=== PATIENT | male | born 2005 | race Caucasian/White ===

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

== ENCOUNTER 2023-09-28 11:58 | Emergency (ER) | payer BC, SELFPAY ==
[2023-09-28 12:14] VITALS: BP 126/78; PULSE 88; RESP 16; TEMP 38.4; O2SAT 99
--- NOTE | 2023-09-28 12:15 | ED.URI ---
HPI - URI/Sore Throat General Chief Complaint: Upper Respiratory Infection Stated Complaint: body aches,tired,headache,spine/neck pain Time Seen by Provider: 09/28/23 12:30 Source: patient and RN notes reviewed Mode of arrival: ambulatory Limitations: no limitations History of Present Illness HPI Narrative: 18-year-old male presents concern for less than 2 day history of body aches, fever, headache, nausea, vomiting. Reports he has been taking Tylenol ibuprofen and Delsym. Reports symptoms started after returning from [place]. MD elicited complaint: fever and cough Related Data Allergies Allergy/AdvReac Type Severity Reaction Status Date / Time Penicillins Allergy Severe Hives Verified 09/28/23 12:27 Review of Systems Review of Systems: CONSTITUTIONAL: Reports malaise, chills, sweats, or fever. EYES: Denies visual changes, redness, or discharge. ENT: Reports rhinorrhea, congestion, and sore throat. CARDIOVASCULAR: Denies chest pain, palpitations, or edema. RESPIRATORY: Reports cough. Denies dyspnea. GASTROINTESTINAL: Denies abdominal pain. Reports nausea, vomiting, diarrhea SKIN: Denies rash or itching. MUSCULOSKELETAL: Reports myalgia. NEUROLOGIC: Reports headache. All systems reviewed & are unremarkable except as noted in HPI and below PMFSH Surgical History Surgical History H/O adenoidectomy History of tonsillectomy Comments At time of signature, agree with nursing past medical, surgical, social and family history. There is no relevant family history pertinent to the presenting complaint Exam Narrative: GENERAL: Nontoxic-appearing, well-nourished, and in no acute distress. HEAD: Normocephalic EYES: PERRLA, conjunctivae clear ENT: Nares clear. Mucous membranes moist. TM pearly delcid with sharp light reflex bilaterally; no tragal tenderness. Oropharynx not erythematous without lesions. Tonsils not enlarged and without exudate, no drooling, no hoarseness, no trismus, uvula midline. NECK: Supple. No lymphadenopathy CHEST: Clear to auscultation, breath sounds equal. No wheezing, rhonchi, rales, or stridor. No respiratory distress, speaks in full sentences. HEART: Regular rate and rhythm. No murmur heard. SKIN: Warm, dry, no rash. NEURO: Alert and oriented x3. PSYCH: Normal mood and affect Course Course Emergency Course: Patient is aware of diagnosis, understands and agrees to treatment plan. Anticipatory guidance given. Patient agrees to follow-up as directed and is aware of reasons to seek care at the emergency department. Portions of this record may have been created with voice recognition software Level of Care: Express Care Visit Vital Signs Vital signs: Reviewed. MDM - URI/Sore Throat MDM Narrative Medical decision making narrative: Differential diagnosis considered: Alegre virus, strep pharyngitis, allergic rhinitis, upper respiratory tract infection, sinusitis, rhinosinusitis, nasopharyngitis. viral pharyngitis, otitis media, otitis externa, pneumonia, bronchitis, viral cough syndrome, viral syndrome, and influenza. Exam findings show no acute concerns or changes; patient is non-toxic appearing and is in no distress. Patient is appropriate for outpatient treatment and follow-up. Lab Data Attestation: I reviewed the patient's lab results. Critical Care Time Critical Care Time Critical Care Time: No Discharge Plan Discharge Clinical Impression: Influenza A Patient Disposition: Home, Self-Care Condition: Stable Instructions: Influenza (ED) Additional Instructions: -Take strict precautions to prevent the spread of your virus. Be diligent about covering your cough (even when you are alone) and washing your hands frequently. -You may contagious until you have been symptom and/or fever free for 24 hours without fever reducing medicine -Alternate Ibuprofen and Tylenol for pain and fever relief (per package directions) -
== END 2023-09-28 12:42 | disposition home or self-care (01) ==
PROVIDERS: Emergency Provider Nurse Practitioner; PCP Family Medicine Adolescent Medicine
DX: J10.1 Influenza due to other identified influenza virus with other respiratory manifestations (principal); Z20.822 Contact with and (suspected) exposure to COVID-19
CPT/HCPCS: 87426; 87804; 99213; G0463

== ENCOUNTER 2024-06-14 13:58 | Emergency (ER) | payer BC, SELFPAY ==
[2024-06-14 14:08] VITALS: BP 130/72; PULSE 66; RESP 16; TEMP 36.4; O2SAT 99
--- NOTE | 2024-06-14 14:08 | ED_ITS ---
HPI - URI/Sore Throat General Chief Complaint: Upper Respiratory Infection Stated Complaint: Sore Throat/Sinus Time Seen by Provider: 06/14/24 14:00 Source: patient Mode of arrival: ambulatory Limitations: no limitations History of Present Illness HPI Narrative: Patient is a 18-year-old male who presents with 2 days of sore throat, sinus congestion, sinus pressure, headache and mild cough. Patient denies any fever, chills, nausea, vomiting, diarrhea. Has taken [id number] medication the relief. Related Data Allergies Allergy/AdvReac Type Severity Reaction Status Date / Time Penicillins Allergy Severe Hives Verified 09/28/23 12:27 All cillins Allergy Hives Uncoded 06/14/24 14:46 Review of Systems Review of Systems: All systems reviewed & are unremarkable except as noted in HPI and below Constitutional: Constitutional: Denies body ache(s), Denies chills, Denies fatigue, Denies fever(s), Denies headache(s), Denies malaise and Denies weakness Eyes: Eyes: Denies blurry vision, Denies itchy eyes and Denies loss of vision ENT: Denies otalgia, Denies headache(s), Reports nasal congestion, Denies sinus pain, Reports sinus pressure and Denies sore throat Cardiovascular: Cardiovascular: Denies chest pain, Denies irregular heart rhythm and Denies dyspnea Respiratory: Respiratory: Reports cough and Denies dyspnea Gastrointestinal: Gastrointestinal: Denies abdominal pain, Denies diarrhea, Denies nausea and Denies vomiting Musculoskeletal: Musculoskeletal: Denies back pain, Denies myalgias and Denies arthralgias Integumentary/Breasts: Skin/Breast: Denies pruritus and Denies rash Neurologic: Denies headache(s), Denies loss of vision and Denies weakness Psychiatric: Psychiatric: Reports no additional psychiatric complaints Endocrine: Endocrine: Denies fatigue Allergic/Immunologic: Allergic/Immunologic: Denies itchy eyes PMFSH Surgical History Surgical History H/O adenoidectomy History of tonsillectomy Comments At time of signature, agree with nursing past medical, surgical, social and family history. There is no relevant family history pertinent to the presenting complaint. Exam Const: General: cooperative, healthy appearing, comfortable, no acute distress and well nourished Nutritional Appearance: well nourished Orientation/consciousness: patient oriented x3 Limitations: no limitations HENMT: Head: normal to inspection, normocephalic and atraumatic Ears: hearing grossly normal bilaterally, external ears normal, TM's normal bilaterally, EAC's normal and no periauricular adenopathy Face/Nose/Sinus: Normal external nose present, Abnormal mucous membranes and turbinates present erythematous bilateral and diffuse, normal facial exam, sinuses nontender and face symmetric Face and sinus: normal facial exam, sinuses nontender and face symmetric Mouth: Yes Normal oral and palatal mucosa present, Yes lip normal, Yes tongue normal, Yes Normal salivary glands and ducts present, Yes oropharynx normal and Yes moist mucous membranes Teeth and gingiva: dentition normal Throat: posterior oropharynx normal, tonsils normal, uvula midline and postnasal drainage Eyes: General: appearance normal, both eyes and all related structures Alignment and Position: alignment normal and position normal Periorbital: periorbital findings normal Eyelids: eyelids normal Pupils: Equal, round and reactive pupils present Neck: Neck: normal visual inspection, full ROM, no lymphadenopathy and supple Chest: Chest palpation & inspection: normal inspection of the chest and normal palpation of entire chest wall Resp: Effort & Inspection: normal respiratory effort and able to speak in complete sentences Auscultation: clear to auscultation bilaterally, no crackles, no rales, no rhonchi and no wheezes Cardio: Rate: regular rate Rhythm: regular rhythm Heart sounds: S1 normal heart sound present and S2 normal heart sound present GI: Inspection: normal to inspection Skin: General skin exam: normal color and no rashes or lesions noted Neuro: General: patient oriented x3 and moves all extremities Cranial nerves: Yes Equal, round and reactive pupils present Speech: normal speech Gait exam (Neuro): Normal gait present Extrem: General: normal to inspection, full ROM and no edema Psych: Appearance: grossly normal and well kempt Mental Status: mental status grossly normal Speech and movement: Normal speech and movement present Affect: normal affect Attitude: cooperative Thought process: Normal thought process present Course Course Emergency Course: Patient is aware of diagnosis, understands and agrees to treatment plan. Anticipatory guidance given. Patient agrees to follow-up as directed and is aware of reasons to seek care at the emergency department. Portions of this record may have been created with voice recognition software Level of Care: Express Care Visit Vital Signs Vital signs: Vital Signs Temperature 36.4 C L 06/14/24 14:08 Pulse Rate 66 06/14/24 14:08 Respiratory Rate 16 06/14/24 14:08 Blood Pressure 130/72 06/14/24 14:08 Pulse Oximetry 99 06/14/24 14:08 Oxygen Delivery Room Air 06/14/24 14:08 Temperature 36.4 C L 06/14/24 14:08 Pulse Rate 66 06/14/24 14:08 Respiratory Rate 16 06/14/24 14:08 Blood Pressure 130/72 06/14/24 14:08 Pulse Oximetry 99 06/14/24 14:08 Oxygen Delivery Room Air 06/14/24 14:08 Reviewed MDM - URI/Sore Throat MDM Narrative Medical decision making narrative: Discharge instructions reviewed with patient, as well as provided in writing per nursing staff. The instructions also include specific and strict return/GO TO THE ER as well as f/u information. All questions have been answered, and the patient deny any further questions with discharge and discharge plan. Differential diagnosis considered: Alegre virus, strep pharyngitis, allergic rhinitis, upper respiratory tract infection, sinusitis, rhinosinusitis, nasopharyngitis. viral pharyngitis, otitis media, otitis externa, otitis effusion, foreign body, cerumen impaction, viral syndrome, and influenza.? Exam findings show no acute concerns or changes; patient is non-toxic appearing and is in no distress.? Patient is appropriate for outpatient treatment and follow- up.? Medical Records Attestation: I reviewed the patient's medical records. Lab Data Attestation: I reviewed the patient's lab results. Labs: Lab Results 06/14/24 Range/Units 14:26 POC Grp A Strep Screen Negative (Negative) Discharge Plan Discharge Clinical Impression: Upper respiratory infection Qualifiers: URI type: acute nasopharyngitis (common cold) Qualified Code(s): J00 - Acute nasopharyngitis [common cold] Patient Disposition: Home, Self-Care Condition: Stable Instructions: Upper Respiratory Infection (ED) Additional Instructions: Your rapid strep swab was negative today at [facility]. A throat culture will be sent to the laboratory for further testing. If the test is positive, you will receive a phone call within 48 hours and an appropriate antibiotic will be initiated at that time. Your symptoms are likely due to a viral illness, which is not treated with antibiotics. Viral symptoms can be present for up to a few weeks. -Alternate Tylenol and Motrin per package directions for fever or pain. -Antihistamine medication such as Benadryl/Zyrtec at night and Claritin/Kacey during the day can help improve symptoms. -Use Flonase twice a day for 5 days then daily to help reduce the inflammation and dry up your sinuses. -You can also use Sudafed behind the pharmacy counter(12 or 24 hour). Be sure to drink plenty of water with these medications at least 8 ounces with every dose and it is important to drink 8 to 10 glasses of water per day. Water is a natural decongestant -Eat and drink things that are easy to swallow, like tea or soup, or popsicles. -Oral rinses such as: Salt water gargles and/or may use topical anesthetic (eg. Chloraseptic spray) or lozenges to relieve dryness or throat pain). -Frequent hand washing or hand welfare adviser is one of the best ways to prevent spread of infection. -Using a vaporizer or humidifier at night will also help thin secretions and help with coughing up phlegm. -Follow up with primary care provider in 3-5 days if condition is not improving - For new or worsening symptoms go directly to the nearest ER Prescriptions: New fluticasone propionate [Flonase Allergy Relief] 50 mcg/actuation spray,suspension 1 spray intranasal DAILY Qty: 16 0RF Rx Instructions: administer into each nostril loratadine 10 mg tablet 10 mg PO DAILY Qty: 30 0RF No Action (DME) Aerochamber MV Spacer See Rx Instructions .Route Qty: 1 0RF Rx Instructions: As directed oseltamivir 75 mg capsule 75 mg PO BID 5 Days Qty: 10 0RF promethazine 25 mg tablet 25 mg PO TID PRN (Reason: nausea and vomiting) Qty: 14 0RF Follow-up/Referrals: Cholo Babin MD [Primary Care Provider] - 3 Days Time of Disposition: 15:04
[2024-06-14 14:28] LABS: EDSTREPNEGPOS1 Negative (Negative)
== END 2024-06-14 15:10 | disposition home or self-care (01) ==
PROVIDERS: Emergency Provider Nurse Practitioner Family; PCP Family Medicine Adolescent Medicine
DX: J00 Acute nasopharyngitis [common cold] (principal)
CPT/HCPCS: 87081; 87880; 99213; G0463

== ENCOUNTER 2024-06-23 19:50 | Emergency (ER) | payer BC, SELFPAY ==
--- NOTE | ~2024-06-23 | XR_ITS ---
EXAMINATION: XR chest 2V DATE: 06/23/2024 22:24 INDICATION: Infection. TECHNIQUE: Frontal and lateral views of the chest were obtained. COMPARISON: Chest 2 view 05/10/2013 FINDINGS: There is no pneumonia, pleural effusion, or pneumothorax. The heart size is normal. IMPRESSION: 1. No acute cardiopulmonary disease. Reviewed, dictated and finalized at location A. [employer]
--- NOTE | ~2024-06-23 | CT_ITS ---
EXAMINATION: CT abdomen pelvis w con DATE: 06/23/2024 22:37 INDICATION: Abdominal pain. Diarrhea. TECHNIQUE: Computed tomography (CT) of the abdomen and pelvis was performed with 100 mL Omnipaque 350 intravenous contrast. Automated exposure control and iterative reconstruction technique were employe d. The dose-length product was 282.02 mGy-cm. COMPARISON: None. FINDINGS: The visualized portions of the bases are clear without pneumonia or pleural effusion. The h eart size is normal. No pericardial effusion. The liver, gallbladder, spleen, pancreas, adrenal gland s, and kidneys are normal. There are no dilated loops of bowel. There is liquid stool in the colon co rrelating with the symptom of diarrhea. The appendix is normal. There are no pathologically enlarged lymph nodes. Mild lumbar spondylosis. IMPRESSION: 1. No etiology for the patient's symptoms. Reviewed, dictated and finalized at location A. [employer]
[2024-06-23 20:20] VITALS: BP 103/69; PULSE 83; RESP 20; TEMP 36.7; O2SAT 100
[2024-06-23] MEDS: ONDANSETRON INJ 4 MG/2 ML VIAL IV PUSH (20:56)
--- NOTE | 2024-06-23 21:23 | ED_ITS ---
HPI - Nausea/Vomiting/Diarrhea General Chief complaint: Nausea/Vomiting/Diarrhea <Maame Raygoza APRN - Last Filed: 06/24/24 02:41> Stated complaint: n/v/d <Maame Raygoza APRN - Last Filed: 06/24/24 02:41> Time Seen by Provider: 06/23/24 20:51 <Maame Raygoza APRN - Last Filed: 06/24/24 02:41> History of Present Illness HPI Narrative: Patient is a 18-year-old male who presents to the ER with abdominal pain, vomiting, diarrhea since this morning. He reports he had Belcher's this morning and his symptoms started shortly afterwards. Patient denies use marijuana. He denies any recent sick contacts. Patient reports he has been able to urinate today. He denies any pertinent medical history related to this visit. Patient denies chest pain, shortness of breath, fevers. <Maame Raygoza APRN - Last Filed: 06/24/24 02:41> Related Data Allergies/Adverse reactions: Allergies Allergy/AdvReac Type Severity Reaction Status Date / Time Penicillins Allergy Severe Hives Verified 06/23/24 20:28 All cillins Allergy Hives Uncoded 06/23/24 20:28 <Maame Raygoza APRN - Last Filed: 06/24/24 02:41> Review of Systems 2 Review of Systems: All systems reviewed & are unremarkable except as noted in HPI and below <Maame Raygoza APRN - Last Filed: 06/24/24 02:41> PMFSH Surgical History Surgical History: Surgical History H/O adenoidectomy History of tonsillectomy <Maame Raygoza APRN - Last Filed: 06/24/24 02:41> Exam 2 Narrative: GENERAL: Ill-appearing, well-nourished, non-toxic, in distress d/t abdominal pain. HEAD: Normocephalic, atraumatic. NECK: Supple. No adenopathy, no masses. RESPIRATORY: Airway patent, respirations nonlabored. Clear to auscultation bilaterally, no rales, rhonchi, wheezing. CARDIOVASCULAR: Regular rate and rhythm without murmurs, rubs, or gallops. Peripheral pulses 2+ and equal bilaterally. ABDOMINAL: Soft, tender with palpation, nondistended, no hepatosplenomegaly. Normoactive BS. MUSCULOSKELETAL: Moves all extremities. Strength/ROM intact without gross deformities. SKIN: Warm, dry, normal color. No rashes. NEURO: A&O X3. Speech clear. Cranial nerves II-XII grossly intact.No ataxic movements. <Maame Raygoza APRN - Last Filed: 06/24/24 02:41> Course CONVEYOR WORKER/PA Physician Supervision I agree with midlevel documentation; I performed the medical decision making component of this evaluation. I had independent [id number] time with the patient and performed my own independent evaluation and assessment. Patient otherwise looks remarkably improved after medications, vital signs have been normal and stable here in the emergency department. Aside from a white count elevation likely secondary to his nausea vomiting diarrhea I do not have any infectious concerns and his symptoms are likely secondary to a gastroenteritis secondary to potential food poisoning after eating Belcher's and [employer] today. He was re-evaluated frequently with complete symptomatic resolution. He felt comfortable with discharge home and I did tell him about his laboratory results and if he has any persistent symptoms or worsening symptoms that he needs to come back for repeat evaluation. Patient and family verbalized understanding these instructions and stable for discharge home with several medications for symptom control. Please refer to [facility] dictation for complete documentation of care and disposition. <Erik Garcia MD - Last Filed: 06/24/24 02:38> Vital Signs Vital signs: Vital Signs Temperature 36.7 C 06/23/24 20:20 Pulse Rate 83 06/23/24 20:20 Respiratory Rate 20 06/23/24 20:20 Blood Pressure 103/69 06/23/24 20:20 Pulse Oximetry 100 06/23/24 20:20 Oxygen Delivery Room Air 06/23/24 20:20 Temperature 36.7 C 06/23/24 20:20 Pulse Rate 71 06/23/24 23:22 Respiratory Rate 14 06/23/24 23:22 Blood Pressure 111/60 06/23/24 23:22 Pulse Oximetry 99 06/23/24 23:22 Oxygen Delivery Room Air 06/23/24 20:20 <Maamekellie Raygoza, AIRPORT SKILLED MAINTENANCE SUPERVISOR - Last Filed: 06/24/24 02:41> Vital Signs Temperature 36.7 C 06/23/24 20:20 Pulse Rate 83 06/23/24 20:20 Respiratory Rate 20 06/23/24 20:20 Blood Pressure 103/69 06/23/24 20:20 Pulse Oximetry 100 06/23/24 20:20 Oxygen Delivery Room Air 06/23/24 20:20 Temperature 36.7 C 06/23/24 20:20 Pulse Rate 71 06/23/24 23:22 Respiratory Rate 14 06/23/24 23:22 Blood Pressure 111/60 06/23/24 23:22 Pulse Oximetry 99 06/23/24 23:22 Oxygen Delivery Room Air 06/23/24 20:20 <Erik Garcia MD - Last Filed: 06/24/24 02:38> MDM - Nausea/Vomiting/Diarrhea MDM Narrative Medical decision making narrative: Patient is a 18-year-old male who presents to the ER with abdominal pain, vomiting, diarrhea since this morning. He reports he had Belcher's this morning and his symptoms started shortly afterwards. Patient denies use marijuana. He denies any recent sick contacts. Patient reports he has been able to urinate today. He denies any pertinent medical history related to this visit. Patient denies chest pain, shortness of breath, fevers. Labs Ordered: CBC, CMP, blood culture, Lipase, troponin, CRP, lactic acid, INR, PTT, COVID /flu/ RSV, UDS, UA Imaging Ordered: abdominal pelvis CT scan, chest XR Results: Pt's chest x-ray indicates no acute cardiopulmonary disease. Patient's abdominal CT scan indicates The visualized portions of the bases are clear without pneumonia or pleural effusion. The heart size is normal. No pericardial effusion. The liver, gallbladder, spleen, pancreas, adrenal glands, and kidneys are normal. There are no dilated loops of bowel. There is liquid stool in the colon correlating with the symptom of diarrhea. The appendix is normal. There are no pathologically enlarged lymph nodes. Mild lumbar spondylosis. Patient's CBC indicates white blood cell count of 26.7, hemoglobin of 18.5, hematocrit of 53.7%, platelet count of 396. It is believed his CBC is abnormal due to his vomiting, diarrhea, and dehydration, and not due to infection, as his lactic acid is normal. Patient's CMP indicates a BUN of 21, calcium 11.0, total bilirubin of 1.5, glucose of 126, protein of 9.0, and albumin of 5.5. His urinalysis indicated dehydration. Patient's COVID/influenza/RSV panel was negative. Patient given 2 L normal saline IV bolus, along with Zofran 4 mg, Benadryl 25 mg IV, Reglan 10 mg IV. Diagnosis: Viral gastroenteritis, dehydration Patient Education/Shared MDM: 2200- Pt endorses relief after medication administration, but would like to proceed forward with an abdominal CT scan. 0100-Results shared with patient and his mother. Patient looks markedly better after IV fluid resuscitation. He and his mother are in agreement for plan to discharge home. Patient will be given a prescription for Zofran ODT, Bentyl, and Imodium. He was advised to continue with oral rehydration and return to the ER with any worsening symptoms. Patient and his mother verbalized understanding. 0230-He continues to experience some nausea, so pt will be given another dose of Zofran before discharge. Patient is in agreement with current treatment plan. All questions answered. Vital signs stable at time of discharge. <Maame Raygoza APRN - Last Filed: 06/24/24 02:41> Differential Diagnosis Differential diagnosis: Likely food poisoning, gastroenteritis, drug-induced nausea and vomiting and dehydration <Maame Raygoza APRN - Last Filed: 06/24/24 02:41> Lab Data Attestation: I reviewed the patient's lab results. <Maame Raygoza APRN - Last Filed: 06/24/24 02:41> Result diagrams: 06/23/24 20:59 06/23/24 20:59 <Maame Raygoza APRN - Last Filed: 06/24/24 02:41> Labs: Lab Results 06/23/24 06/23/24 06/24/24 Range/Units 20:59 22:50 00:57 WBC 26.7 H (4.5-10.0) K/mm3 RBC 6.09 (4.6-6.20) M/mm3 Hgb 18.5 H (14.0-18.0) g/dL Hct 53.7 H (42.0-52.0) % MCV 88.2 (80-100) fl MCH 30.4 (26-34) pg MCHC 34.5 (32-36) g/dl RDW 12.6 (11.5-14.5) % Plt Count 396 H (150-375) k/mm3 MPV 10.5 H (7.4-10.4) fl Immature Gran % (Auto) Not Reportable Neut % (Auto) Not Reportable Lymph % (Auto) Not Reportable [place] % (Auto) Not Reportable Eos % (Auto) Not Reportable Baso % (Auto) Not Reportable Lymph # (Auto) Not Reportable [place] # (Auto) Not Reportable Eos # (Auto) Not Reportable Baso # (Auto) Not Reportable Abs Immat Gran (auto) Not Reportable Absolute Neuts (auto) Not Reportable Absolute Nucleated RBC Not Reportable Total Counted 100 Neutrophils % (Manual) 83 H (46-73) % Band Neutrophils % 9 H (0-6) % Lymphocytes % (Manual) 3 L (18-44) % Monocytes % (Manual) 4 (3-9) % Eosinophils % (Manual) 1 (0-4) % Nucleated RBC % Not Reportable Abs Neuts (Manual) 24.56 H (1.3-6.7) K/mm3 Abs Lymphs (Manual) 0.80 L (1.1-4.5) K/mm3 Abs Monocytes (Manual) 1.06 H (0.1-0.90) K/mm3 Absolute Eos (Manual) 0.26 (0.02-0.50) K/mm3 Platelet Estimate Adequate (Adequate) Schistocytes None seen PT 17.7 H (11.1-14.7) Seconds INR 1.4 APTT 26.8 (22.3-36.8) Seconds Sodium 139 (137-145) mmol/L Potassium 4.8 (3.4-5.0) mmol/L Chloride 102 (98-107) mmol/L Carbon Dioxide 25 (22-30) mmol/L Anion Gap 12 (4-12) mmol/L BUN 21 H (9-20) mg/dL Creatinine 1.20 (0.7-1.3) mg/dL Estim Creat Clear Calc 91 ml/min Estimated GFR > 60 (59 - ) Glucose 126 H (65-110) mg/dL Lactic Acid 1.2 (0.7-2.0) mmol/L Calcium 11.0 H (8.4-10.2) mg/dL Total Bilirubin 1.5 H (0.2-1.3) mg/dL AST 37 (17-59) U/L ALT 29 (6-50) U/L Alkaline Phosphatase 83 (38-126) U/L Troponin I < 0.012 (0.000-0.034) ng/mL C-Reactive Protein < 0.5 (<1.0) mg/dL Total Protein 9.0 H (6.3-8.2) g/dL Albumin 5.5 H (3.5-5.1) g/dL Lipase 185 (23-300) U/L Urine Color Yellow (Yellow) Urine Appearance Clear (Clear) Urine pH 6.5 (5.0-9.0) Ur Specific [place] > 1.045 H (1.001-1.035) Urine Protein Trace (Negative) mg/dL Urine Glucose (UA) Negative (Negative) mg/dL Urine Ketones 1+ H (Negative) mg/dL Ur Blood (Man) Negative (Negative) Urine Nitrate Negative (Negative) Urine Bilirubin Negative (Negative) Urine Urobilinogen 0.2 (<2.0) mg/dL Leukocyte Esterase Rfl Negative (Negative) BOY/UL Urine RBC 0-2 (0-2) /hpf Urine WBC 0-5 (0-3) /hpf Urine Opiates Screen Negative (Negative) Urine Methadone Screen Negative (Negative) Ur Barbiturates Screen Negative (Negative) Ur Phencyclidine Scrn Negative (Negative) Ur Amphetamine Screen Negative (Negative) U Benzodiazepines Scrn Negative (Negative) Urine Cocaine Screen Negative (Negative) U Cannabinoids Screen Negative (Negative) Influenza A (RT-PCR) Negative (Negative) Influenza B (RT-PCR) Negative (Negative) RSV (RT-PCR) Negative (Negative) SARS-CoV-2 RNA (RT-PCR) Negative (Negative) <Maame Raygoza, AIRPORT SKILLED MAINTENANCE SUPERVISOR - Last Filed: 06/24/24 02:41> Lab Results 06/23/24 06/23/24 06/24/24 Range/Units 20:59 22:50 00:57 WBC 26.7 H (4.5-10.0) K/mm3 RBC 6.09 (4.6-6.20) M/mm3 Hgb 18.5 H (14.0-18.0) g/dL Hct 53.7 H (42.0-52.0) % MCV 88.2 (80-100) fl MCH 30.4 (26-34) pg MCHC 34.5 (32-36) g/dl RDW 12.6 (11.5-14.5) % Plt Count 396 H (150-375) k/mm3 MPV 10.5 H (7.4-10.4) fl Immature Gran % (Auto) Not Reportable Neut % (Auto) Not Reportable Lymph % (Auto) Not Reportable [place] % (Auto) Not Reportable Eos % (Auto) Not Reportable Baso % (Auto) Not Reportable Lymph # (Auto) Not Reportable [place] # (Auto) Not Reportable Eos # (Auto) Not Reportable Baso # (Auto) Not Reportable Abs Immat Gran (auto) Not Reportable Absolute Neuts (auto) Not Reportable Absolute Nucleated RBC Not Reportable Total Counted 100 Neutrophils % (Manual) 83 H (46-73) % Band Neutrophils % 9 H (0-6) % Lymphocytes % (Manual) 3 L (18-44) % Monocytes % (Manual) 4 (3-9) % Eosinophils % (Manual) 1 (0-4) % Nucleated RBC % Not Reportable Abs Neuts (Manual) 24.56 H (1.3-6.7) K/mm3 Abs Lymphs (Manual) 0.80 L (1.1-4.5) K/mm3 Abs Monocytes (Manual) 1.06 H (0.1-0.90) K/mm3 Absolute Eos (Manual) 0.26 (0.02-0.50) K/mm3 Platelet Estimate Adequate (Adequate) Schistocytes None seen PT 17.7 H (11.1-14.7) Seconds INR 1.4 APTT 26.8 (22.3-36.8) Seconds Sodium 139 (137-145) mmol/L Potassium 4.8 (3.4-5.0) mmol/L Chloride 102 (98-107) mmol/L Carbon Dioxide 25 (22-30) mmol/L Anion Gap 12 (4-12) mmol/L BUN 21 H (9-20) mg/dL Creatinine 1.20 (0.7-1.3) mg/dL Estim Creat Clear Calc 91 ml/min Estimated GFR > 60 (59 - ) Glucose 126 H (65-110) mg/dL Lactic Acid 1.2 (0.7-2.0) mmol/L Calcium 11.0 H (8.4-10.2) mg/dL Total Bilirubin 1.5 H (0.2-1.3) mg/dL AST 37 (17-59) U/L ALT 29 (6-50) U/L Alkaline Phosphatase 83 (38-126) U/L Troponin I < 0.012 (0.000-0.034) ng/mL C-Reactive Protein < 0.5 (<1.0) mg/dL Total Protein 9.0 H (6.3-8.2) g/dL Albumin 5.5 H (3.5-5.1) g/dL Lipase 185 (23-300) U/L Urine Color Yellow (Yellow) Urine Appearance Clear (Clear) Urine pH 6.5 (5.0-9.0) Ur Specific [place] > 1.045 H (1.001-1.035) Urine Protein Trace (Negative) mg/dL Urine Glucose (UA) Negative (Negative) mg/dL Urine Ketones 1+ H (Negative) mg/dL Ur Blood (Man) Negative (Negative) Urine Nitrate Negative (Negative) Urine Bilirubin Negative (Negative) Urine Urobilinogen 0.2 (<2.0) mg/dL Leukocyte Esterase Rfl Negative (Negative) BOY/UL Urine RBC 0-2 (0-2) /hpf Urine WBC 0-5 (0-3) /hpf Urine Opiates Screen Negative (Negative) Urine Methadone Screen Negative (Negative) Ur Barbiturates Screen Negative (Negative) Ur Phencyclidine Scrn Negative (Negative) Ur Amphetamine Screen Negative (Negative) U Benzodiazepines Scrn Negative (Negative) Urine Cocaine Screen Negative (Negative) U Cannabinoids Screen Negative (Negative) Influenza A (RT-PCR) Negative (Negative) Influenza B (RT-PCR) Negative (Negative) RSV (RT-PCR) Negative (Negative) SARS-CoV-2 RNA (RT-PCR) Negative (Negative) <Erik Garcia MD - Last Filed: 06/24/24 02:38> Imaging Data Attestation: I personally reviewed and interpreted this imaging study as follows: < Maame Raygoza APRN - Last Filed: 06/24/24 02:41> Radiologist's impression: Impressions Chest X-Ray 06/23/24 22:27 IMPRESSION: 1. No acute cardiopulmonary disease. Abdomen/Pelvis CT 06/23/24 22:40 IMPRESSION: 1. No etiology for the patient's symptoms. <Maame Raygoza APRN - Last Filed: 06/24/24 02:41> Discharge Plan Discharge Clinical Impression: Gastroenteritis, Dehydration <Maame Raygoza APRN - Last Filed: 06/24/24 02:41> Patient Disposition: Home, Self-Care <Maame Raygoza APRN - Last Filed: 06/24/24 02:41> Condition: Stable <Maame Raygoza APRN - Last Filed: 06/24/24 02:41> Instructions: Antibiotic Form, Gastroenteritis (ED), Acute Nausea and Vomiting (ED), Acute Diarrhea (ED) <Maame Raygoza APRN - Last Filed: 06/24/24 02:41> Additional Instructions: Please return to the ER with an worsening symptoms. Follow-up with primary care provider in the next 2-3 days. Take all medications as prescribed. <Maame Raygoza APRN - Last Filed: 06/24/24 02:41> Patient Language: Korean <Maame Raygoza APRN - Last Filed: 06/24/24 02:41> Prescriptions: New ondansetron 4 mg tablet,disintegrating 4 mg PO Q8H PRN (Reason: nausea and vomiting) Qty: 14 0RF loperamide [Imodium A-D] 2 mg capsule 2 mg PO Q6H PRN (Reason: loose stool) Qty: 7 0RF dicyclomine 10 mg capsule 10 mg PO TID Qty: 14 0RF No Action (DME) Aerochamber MV Spacer See Rx Instructions .Route Qty: 1 0RF Rx Instructions: As directed promethazine 25 mg tablet 25 mg PO TID PRN (Reason: nausea and vomiting) Qty: 14 0RF fluticasone propionate [Flonase Allergy Relief] 50 mcg/actuation spray,suspension 1 spray intranasal DAILY Qty: 16 0RF Rx Instructions: administer into each nostril loratadine 10 mg tablet 10 mg PO DAILY Qty: 30 0RF <Maame Raygoza APRN - Last Filed: 06/24/24 02:41> Follow-up/Referrals: Cholo Babin MD [Primary Care Provider] - <Maame Raygoza APRN - Last Filed: 06/24/24 02:41> Time of Disposition: 02:41 <Maame Raygoza APRN - Last Filed: 06/24/24 02:41> 02:41 <Erik Garcia MD - Last Filed: 06/24/24 02:38>
[2024-06-23] MEDS: SODIUM CHLORIDE 0.9% IV 1,000 ML 999 ML IV CONT ×2 (21:27→22:41)
[2024-06-23] MEDS: diphenhydrAMINE HCl INJ 50 MG/ML VIAL 25 MG IV PUSH (21:28)
[2024-06-23] MEDS: METOCLOPRAMIDE HCL INJ 10 MG/2 ML VIAL IV PUSH (21:28)
[2024-06-23] MEDS: FAMOTIDINE 20 MG/2 ML VIAL IV PUSH (21:28)
[2024-06-23 21:41] LABS: Alanine Aminotransferase 29 U/L (6-50); Albumin Level 5.5 g/dL (3.5-5.1); Alkaline Phosphatase 83 U/L (38-126); Anion Gap 12 mmol/L (4-12); Aspartate Amino Transferase 37 U/L (17-59); Bilirubin,Total 1.5 mg/dL (0.2-1.3); Blood Urea Nitrogen 21 mg/dL (9-20); Carbon Dioxide 25 mmol/L (22-30); Chloride 102 mmol/L (98-107); Estimated CRCL calculation 91 ml/min; Estimated Glomerular Filt Rate > 60; Glucose 126 mg/dL (65-110); Lipase 185 U/L (23-300); Potassium 4.8 mmol/L (3.4-5.0); Sodium 139 mmol/L (137-145)
[2024-06-23] MEDS: KETOROLAC 15 MG/ML VIAL (*BKC) IV PUSH (21:41)
[2024-06-23 21:50] LABS: Hematocrit 53.7 % (42.0-52.0); Hemoglobin 18.5 g/dL (14.0-18.0); Mean Corpuscular HGB Conc 34.5 g/dl (32-36); Mean Corpuscular Hemoglobin 30.4 pg (26-34); Mean Corpuscular Volume 88.2 fl (80-100); Mean Platelet Volume 10.5 fl (7.4-10.4); Platelet Count Result 396 k/mm3 (150-375); Red Blood Count 6.09 M/mm3 (4.6-6.20); Red Cell Distribution Width 12.6 % (11.5-14.5); White Blood Count 26.7 K/mm3 (4.5-10.0)
[2024-06-23 22:11] LABS: Band Neutrophils Percent 9 % (0-6); Eosinophils Absolute Manual 0.26 K/mm3 (0.02-0.50); Eosinophils Percent Manual 1 % (0-4); Lymphocytes Percent Manual 3 % (18-44); Monocytes Absolute Manual 1.06 K/mm3 (0.1-0.90); Monocytes Percent Manual 4 % (3-9); Neutrophils Absolute Manual 24.56 K/mm3 (1.3-6.7); Neutrophils Percent Manual 83 % (46-73); Total Cells Counted 100
[2024-06-23 22:12] LABS: Platelet Estimate Adequate (Adequate); Schistocytes None Seen
--- NOTE | 2024-06-23 22:14 | ECG_ITS ---
Test Date: 2024-06-23 23:30:09 Measurements Intervals [place] Rate: 78 P: 52 OR: 150 QRS: 65 QRSD: 86 T: 56 QT: 366 QTc: 419 Interpretive Statements SINUS RHYTHM WITH MARKED SINUS ARRHYTHMIA No previous ECG available for comparison Electronically Signed On 06-24-2024 18:38:19 VALVE REPAIRER RECLAMATION by Darin Soto M.D.
[2024-06-23 22:40] LABS: CRP < 0.5 mg/dL (<1.0)
[2024-06-23 22:49] LABS: Troponin I < 0.012 ng/mL (0.000-0.034)
[2024-06-23 23:09] LABS: INR 1.4; Prothrombin Time 17.7 Seconds (11.1-14.7)
[2024-06-23 23:10] LABS: Partial Thromboplastin Time 26.8 Seconds (22.3-36.8)
[2024-06-23 23:11] LABS: Lactic Acid Reflex 1.2 mmol/L (0.7-2.0)
[2024-06-23 23:22] VITALS: BP 111/60; PULSE 71; RESP 14; O2SAT 99
[2024-06-23 23:34] LABS: Influenza A QL RT-PCR Negative (Negative); Influenza B QL RT-PCR Negative (Negative); RSV RNA, RT-PCR Negative (Negative); SARS-CoV-2 RNA PCR Negative (Negative)
[2024-06-24 01:33] LABS: Add Urine Microscopic? YES; Appearance Urine Clear (Clear); Bilirubin Urine Negative (Negative); Blood Urine Negative (Negative); Color Urine Yellow (Yellow); Glucose Urine UA Negative (Negative); Ketones Urine 1+ mg/dL (Negative); Leukocyte Esterase Ur Negative LEU/UL (Negative); Nitrate Urine Negative (Negative); Protein Urine Trace mg/dL (Negative); Specific Grav Ur > 1.045 (1.001-1.035); Urobilinogen Urine 0.2 mg/dL (<2.0); pH Urine 6.5 (5.0-9.0)
[2024-06-24 01:35] LABS: RBC Urine 0-2 /hpf (0-2); WBC Urine 0-5 /hpf (0-3)
[2024-06-24 01:41] LABS: Amphetamine Screen Urine Negative (Negative); Barbiturate Screen Urine Negative (Negative); Benzodiazepines Screen Urine Negative (Negative); Cannabinoid Screen Urine Negative (Negative); Cocaine Screen Urine Negative (Negative); Methadone Screen Urine Negative (Negative); Opiate Screen Urine Negative (Negative); Phencyclidine Screen Urine Negative (Negative)
[2024-06-24] MEDS: ONDANSETRON INJ 4 MG/2 ML VIAL IV PUSH (02:36)
== END 2024-06-24 02:46 | disposition home or self-care (01) ==
PROVIDERS: Emergency Provider Registered Nurse; PCP Family Medicine Adolescent Medicine
DX: K52.9 Noninfective gastroenteritis and colitis, unspecified (principal); E86.0 Dehydration
CPT/HCPCS: 36415; 71046; 74177; 80053; 80307; 81001; 83605; 83690; 84484; 85025; 85610; 85730; 86140; 87040; 87637; 93005; 96361; 96374; 96375; 96376; 99284; J1200; J1885; J2405; J2765; J7030; Q9967

== ENCOUNTER 2024-09-21 16:57 | Emergency (ER) | payer BC, SELFPAY ==
[2024-09-21 17:05] VITALS: BP 127/67; PULSE 85; RESP 16; TEMP 36.8; O2SAT 99
[2024-09-21 17:31] LABS: EDSTREPNEGPOS1 Negative (Negative)
--- NOTE | 2024-09-21 17:36 | ED_ITS ---
HPI - URI/Sore Throat General Chief Complaint: Upper Respiratory Infection Stated Complaint: Sore Throat Time Seen by Provider: 09/21/24 17:15 Source: patient Mode of arrival: ambulatory Limitations: no limitations History of Present Illness HPI Narrative: 19-year-old male presents with complaint of sore throat for 3 days. Getting progressively worse. Reports fatigue and body aches. Taking ibuprofen with lit tle relief of pain. Patient concern for strep throat. No concern for STI. All systems reviewed and negative except as noted above. Related Data Allergies Allergy/AdvReac Type Severity Reaction Status Date / Time Penicillins Allergy Severe Hives Verified 09/21/24 16:59 All cillins Allergy Hives Uncoded 09/21/24 16:59 Review of Systems Review of Systems: CONSTITUTIONAL: Denies fever, chills, or sweats. EYES: Denies visual changes, redness, or discharge. ENT: Denies rhinorrhea, congestion . Reports sore throat. Denies otalgia. CARDIOVASCULAR: Denies chest pain, palpitations, or edema. RESPIRATORY: Denies cough or dyspnea. GASTROINTESTINAL: Denies abdominal pain, nausea, vomiting, or diarrhea. GENITOURINARY: Denies dysuria or hematuria. SKIN: Denies rash or itching. MUSCULOSKELETAL: Denies back pain, joint pain, or myalgia. NEUROLOGIC: Denies headache, numbness, or weakness. PSYCHIATRIC: Denies anxiety or depression. All other systems reviewed are negative, except as documented in HPI. [facility] Surgical History Surgical History H/O adenoidectomy History of tonsillectomy Comments At time of signature, agree with nursing past medical, surgical, social and family history. There is no relevant family history pertinent to the presenting complaint. Exam Narrative: GENERAL: This is a well-nourished, well-developed patient, in no apparent distress. HEAD: normocephalic, atraumatic. EYES: PERRL. Sclera clear/white. Vision is grossly intact. EARS: External ears normal NOSE: External nose normal THROAT: Mucous membranes moist, erythematous with mild swelling. No exudates. NECK: Neck supple, non-tender without lymphadenopathy, masses or thyromegaly. CARDIOVASCULAR: Regular rate and rhythm without murmurs, gallops, or rubs. RESPIRATORY: Clear to auscultation. Breath sounds equal bilaterally. No wheezes, rales, or rhonchi. SKIN: warm, Dry, intact with no suspicious lesions or rash, good texture and turgor. NEURO: awake, alert, and oriented to person, place and time. There were no obvious focal neurologic abnormalities. EXTREMITIES: No joint tenderness, effusion, or edema noted. Course Course Level of Care: Express Care Visit Vital Signs Vital signs: Vital Signs Temperature 36.8 C 09/21/24 17:05 Pulse Rate 85 09/21/24 17:05 Respiratory Rate 16 09/21/24 17:05 Blood Pressure 127/67 09/21/24 17:05 Pulse Oximetry 99 09/21/24 17:05 Oxygen Delivery Room Air 09/21/24 17:05 Temperature 36.8 C 09/21/24 17:05 Pulse Rate 85 09/21/24 17:05 Respiratory Rate 16 09/21/24 17:05 Blood Pressure 127/67 09/21/24 17:05 Pulse Oximetry 99 09/21/24 17:05 Oxygen Delivery Room Air 09/21/24 17:05 Reviewed MDM - URI/Sore Throat MDM Narrative Medical decision making narrative: negative rapid strep. Strep culture ordered. Will treat patient with antibio tic due to patient's symptoms and exam findings. Please be advised this is a medical document. It is intended for [id number] communication. It is written in medical language and may contain unfamiliar abbreviations or verbiage. Medical documents are intended to carry relevant information, facts as evident, and the clinical opinion of the practitioner at the time of the encounter. This report may have been done utilizing a voice recognition system. Attempts have been made to correct errors. However, there may be uncorrected grammatical, spelling, and recognition errors present. The file time of this note does not necessarily represent the time of service. Differential Diagnosis Differential diagnosis: Likely upper respiratory infection, sinusitis, viral infection and pharyngitis Lab Data Labs: Lab Results 09/21/24 Range/Units 17:10 POC Grp A Strep Screen Negative (Negative) Discharge Plan Discharge Clinical Impression: Acute pharyngitis Qualifiers: Pharyngitis/tonsillitis etiology: unspecified etiology Qualified Code(s): J02.9 - Acute pharyngitis, unspecified Patient Disposition: Home, Self-Care Condition: Stable Instructions: Antibiotic Form, Pharyngitis (ED) Additional Instructions: Your strep test was negative today. Due to your symptoms and exam findings I am prescribing an antibiotic. Take antibiotic as prescribed until gone. Take Tylenol or ibuprofen every 6-8 hours as needed for pain and fever. Drink plenty of water and rest. See your doctor if symptoms are not improving. Patient Language: Rw[place]an Prescriptions: New azithromycin 250 mg tablet See Rx Instructions .ROUTE .COMPLEX Qty: 6 0RF Rx Instructions: For 250 mg dose pack: take 500 mg today (day 1), then 250 mg for 4 days (days 2-5) Follow-up/Referrals: Cholo Babin MD [Primary Care Provider] - Time of Disposition: 17:26
== END 2024-09-21 17:32 | disposition home or self-care (01) ==
PROVIDERS: Emergency Provider Nurse Practitioner Family; PCP Family Medicine Adolescent Medicine
DX: J02.9 Acute pharyngitis, unspecified (principal)
CPT/HCPCS: 87081; 87880; 99213; G0463